=== PATIENT | male | born 1990 | race Hispanic/Latino ===

== ENCOUNTER 2023-07-05 15:26 | Emergency (ER) | payer OTHER ==
[~2023-07-05] VITALS: Ht 172.7 cm; Wt 128.4 kg
[2023-07-05] MEDS ORDERED: HYDROCODONE/ACETAMINOPHEN 5/325 MG TAB PO ONE (18:30)
[2023-07-05] MEDS ORDERED: METH-811 PO (20:07)
[2023-07-05] MEDS ORDERED: IBUP-2070 PO (20:07)
[2023-07-05 20:21] VITALS: BP 145/85; PULSE 80; RESP 17; O2SAT 98
== END 2023-07-05 20:22 | disposition home or self-care (01) ==
LOC: EDH 15:26
DX: S39.012A Strain of muscle, fascia and tendon of lower back, initial encounter (principal); S80.02XA Contusion of left knee, initial encounter; W18.39XA Other fall on same level, initial encounter; Y93.89 Activity, other specified; Y92.89 Other specified places as the place of occurrence of the external cause; Y99.8 Other external cause status
CPT/HCPCS: 72100; 73562